=== PATIENT | male | born 1985 | race Hispanic/Latino ===

== ENCOUNTER 2020-10-15 14:25 | Emergency (ER) | payer SELFPAY ==
[2020-10-15] MEDS ORDERED: LIDOCAINE HCL 1% 20 ML VIAL ONE (15:10)
[2020-10-15] MEDS ORDERED: KETOROLAC TROMETHAMINE 30MG/ML ONE (16:34)
== END 2020-10-15 16:50 | disposition home or self-care (01) ==
LOC: EDH 14:25
DX: S91.112A Laceration without foreign body of left great toe without damage to nail, initial encounter (principal); W26.0XXA Contact with knife, initial encounter; Y93.89 Activity, other specified; Y92.098 Other place in other non-institutional residence as the place of occurrence of the external cause; Y99.8 Other external cause status
CPT/HCPCS: 12042; 73620; 90471; 96372; 99284; J1885